=== PATIENT | male | born 1945 | race Caucasian/White ===

== ENCOUNTER → 2021-02-15 14:40 | Outpatient (CLI) | payer MEDICARE, SELFPAY ==
[2021-02-16 10:44] LABS: COVID19 -Nasal RAPID Negative (Negative)
== END ==
PROVIDERS: Family Provider Family Medicine; PCP Family Medicine; Visit Provider Physician Assistant
DX: Z20.822 Contact with and (suspected) exposure to COVID-19 (principal)
CPT/HCPCS: 87635; C9803

== ENCOUNTER → 2021-05-12 09:36 | Outpatient (CLI) | payer MEDICARE, OTHER, SELFPAY ==
[2021-05-12 20:44] LABS: Add Manual Diff / Slide Review NO; Basophils Absolute Auto 0 /uL (0-100); Basophils Percent Auto 0.5 % (0-2); Eosinophils Absolute Auto 200 /uL (0-450); Eosinophils Percent Auto 3.4 % (2-4); Hematocrit 42.5 % (41-53); Hemoglobin 13.9 g/dL (13.5-17.5); Lymphocytes Absolute Auto 1900 /uL (1100-4500); Lymphocytes Percent Auto 30.9 % (25-40); Mean Corpuscular HGB Conc 32.6 % (30-36); Mean Corpuscular Hemoglobin 32.1 PG (26-34); Mean Corpuscular Volume 98.4 fL (80-100); Monocytes Absolute Auto 600 /uL (0-900); Monocytes Percent Auto 9.8 % (3-14); Neutrophils Absolute Auto 3400 /uL (1500-7000); Neutrophils Percent Auto 55.4 % (50-75); Platelet Count 189 X10^3/uL (150-400); Red Blood Cell Count 4.33 X10^6/uL (4.5-5.9); Red Cell Distribution Width 14.2 % (11.6-14.8); White Blood Cell Count 6.1 X10^3/uL (4.5-11.0)
[2021-05-12 21:00] LABS: Hemoglobin A1C% w Est Avg Glu 5.3 % (4.0-6.0)
[2021-05-12 21:03] LABS: Alanine Aminotransferase 25 IU/L (<50); Albumin 4.4 g/dL (3.5-5.0); Albumin Globulin Ratio 1.5 (1.0-2.8); Alkaline Phosphatase 41 U/L (38-126); Aspartate Aminotransferase 35 IU/L (17-59); BUN Creatinine Ratio 18.3 (6-22); Bilirubin Total 0.7 mg/dL (0.2-1.3); Blood Urea Nitrogen 20 mg/dL (9-20); Calcium 10.5 mg/dL (8.4-10.2); Carbon Dioxide 26 mmol/L (22-32); Chloride 105 mmol/L (98-107); Cholesterol 221 mg/dL (140-199); Estimated Glomerular Filt Rate > 60.0 mL/min (>60); Globulin 2.9 g/dL (1.7-4.1); Glucose 101 mg/dL (80-110); HDL Cholesterol 75 mg/dL (40-60); HEMOLYSIS < 15 (0-50); LDL Cholesterol Calculated 125 mg/dL (<100); Sodium 138 mmol/L (137-145); Total Protein 7.3 g/dL (6.3-8.2); Triglycerides 106 mg/dL (35-150)
[2021-05-12 21:11] LABS: Potassium 5.5 mmol/L (3.4-5.1)
[2021-05-12 21:34] LABS: Prostate Specific Antigen < 0.064 ng/mL (0.10-4.00)
== END ==
PROVIDERS: Family Provider Family Medicine; PCP Family Medicine; Visit Provider Family Medicine
DX: E11.9 Type 2 diabetes mellitus without complications (principal); I10 Essential (primary) hypertension; Z85.46 Personal history of malignant neoplasm of prostate; Z90.5 Acquired absence of kidney
CPT/HCPCS: 80053; 80061; 83036; 84153; 84443; 85025

== ENCOUNTER → 2022-01-24 10:04 | Outpatient (CLI) | payer MEDICARE, OTHER, SELFPAY ==
[2022-01-24 19:39] LABS: Alanine Aminotransferase 29 IU/L (<50); Albumin 4.9 g/dL (3.5-5.0); Albumin Globulin Ratio 1.8 (1.0-2.8); Alkaline Phosphatase 47 U/L (38-126); Aspartate Aminotransferase 39 IU/L (17-59); BUN Creatinine Ratio 26.3 (6-22); Bilirubin Total 0.6 mg/dL (0.2-1.3); Blood Urea Nitrogen 35 mg/dL (9-20); Calcium 10.1 mg/dL (8.4-10.2); Carbon Dioxide 26 mmol/L (22-32); Chloride 102 mmol/L (98-107); Cholesterol 203 mg/dL (140-199); Estimated Glomerular Filt Rate 52.6 mL/min (>60); Globulin 2.8 g/dL (1.7-4.1); Glucose 114 mg/dL (80-110); HDL Cholesterol 62 mg/dL (40-60); HEMOLYSIS < 15 (0-50); Hemoglobin A1C% w Est Avg Glu 5.9 % (4.0-6.0); LDL Cholesterol Calculated 113 mg/dL (<100); Potassium 4.7 mmol/L (3.4-5.1); Sodium 138 mmol/L (137-145); Total Protein 7.7 g/dL (6.3-8.2); Triglycerides 138 mg/dL (35-150)
[2022-01-24 20:11] LABS: Prostate Specific Antigen < 0.064 ng/mL (0.10-4.00)
== END ==
PROVIDERS: Family Provider Family Medicine; PCP Family Medicine; Visit Provider Family Medicine
DX: Z85.46 Personal history of malignant neoplasm of prostate (principal); E78.00 Pure hypercholesterolemia, unspecified; E11.9 Type 2 diabetes mellitus without complications; C64.9 Malignant neoplasm of unspecified kidney, except renal pelvis
CPT/HCPCS: 80053; 80061; 83036; 84153

== ENCOUNTER → 2022-03-14 10:11 | Outpatient (CLI) | payer MEDICARE, OTHER, SELFPAY ==
[2022-03-14 19:18] LABS: BUN Creatinine Ratio 27.6 (6-22); Blood Urea Nitrogen 37 mg/dL (9-20); Carbon Dioxide 26 mmol/L (22-32); Chloride 99 mmol/L (98-107); Estimated Glomerular Filt Rate 56 mL/min (>60); Glucose 107 mg/dL (80-110); HEMOLYSIS < 15 (0-50); Potassium 4.2 mmol/L (3.4-5.1); Sodium 136 mmol/L (137-145)
== END ==
PROVIDERS: Family Provider Family Medicine; PCP Family Medicine; Visit Provider Family Medicine
DX: N18.9 Chronic kidney disease, unspecified (principal)
CPT/HCPCS: 80048

== ENCOUNTER → 2022-07-07 10:21 | Outpatient (CLI) | payer MEDICARE, OTHER, SELFPAY | PROVIDERS: Family Provider Family Medicine; PCP Family Medicine; Visit Provider Physician Assistant Medical | DX: L08.9 Local infection of the skin and subcutaneous tissue, unspecified (principal) | CPT/HCPCS: 87070; 87075; 87077; 87147; 87186; 87205 ==

== ENCOUNTER → 2022-10-11 11:03 | Outpatient (CLI) | payer MEDICARE, OTHER, SELFPAY ==
[2022-10-11 19:25] LABS: Hemoglobin 13.8 g/dL (13.5-17.5); Mean Corpuscular HGB Conc 33.8 % (30-36); Mean Corpuscular Volume 94.6 fL (80-100); Platelet Count 162 X10^3/uL (150-400); Red Blood Cell Count 4.33 X10^6/uL (4.5-5.9); Red Cell Distribution Width 13.6 % (11.6-14.8)
[2022-10-11 19:42] LABS: Cholesterol 198 mg/dL (140-199); HDL Cholesterol 60 mg/dL (40-60); LDL Cholesterol Calculated 95 mg/dL (<100); Triglycerides 213 mg/dL (35-150)
[2022-10-11 20:13] LABS: TSH w/ Reflex to FT4 2.41 uIU/mL (0.47-4.68)
[2022-10-11 20:14] LABS: Testosterone 197 ng/dL (71.8-623)
[2022-10-11 20:18] LABS: Neutrophils Absolute Manual 2400 /uL (3000-5900); RBC Morphology Normal Morphology; Total Cells Counted 100
== END ==
PROVIDERS: Family Provider Family Medicine; PCP Family Medicine; Visit Provider Family Medicine
DX: E78.00 Pure hypercholesterolemia, unspecified (principal); R53.83 Other fatigue
CPT/HCPCS: 80061; 84403; 84443; 85025

== ENCOUNTER → 2022-10-13 10:23 | Outpatient (CLI) | payer MEDICARE, OTHER, SELFPAY ==
[2022-10-13 19:01] LABS: Blood Urea Nitrogen 39 mg/dL (9-20); Calcium 10.5 mg/dL (8.4-10.2); Carbon Dioxide 27 mmol/L (22-32); Chloride 102 mmol/L (98-107); Estimated Glomerular Filt Rate 57 mL/min (>60); Glucose 107 mg/dL (80-110); HEMOLYSIS < 15 (0-50); Potassium 4.4 mmol/L (3.4-5.1); Sodium 141 mmol/L (137-145)
[2022-10-13 19:31] LABS: Prostate Specific Antigen < 0.064 ng/mL (0.10-4.00)
[2022-10-13 19:37] LABS: Hemoglobin A1C% w Est Avg Glu 5.9 % (4.0-6.0)
== END ==
PROVIDERS: Family Provider Family Medicine; PCP Family Medicine; Visit Provider Family Medicine
DX: E11.9 Type 2 diabetes mellitus without complications (principal); Z85.46 Personal history of malignant neoplasm of prostate; N18.31 Chronic kidney disease, stage 3a
CPT/HCPCS: 80048; 83036; 84153

== ENCOUNTER 2022-12-05 18:10 | Emergency (ER) | payer MEDICARE, OTHER, SELFPAY ==
--- NOTE | 2022-12-05 18:25 | DI.CT.S_ITS ---
PROCEDURE: CT HEAD/BRAIN WO CON INDICATIONS: eyesight and hearing impairment TECHNIQUE: Noncontrast 4.5 mm thick angled axial sections acquired from the foramen magnum to the vertex, with coronal and sagittal reformats. For radiation dose reduction, the following was used: automated exposure control, adjustment of mA and/or kV according to patient size. COMPARISON: None. FINDINGS: Image quality: Excellent. CSF spaces: Basal cisterns are patent. No extra-axial fluid collections. The ventricles are symmetric in size and shape. Brain: No intracranial bleeds or masses. There is cerebral volume loss for age, with resultant ventricular and sulcal prominence. There are periventricular and deep white matter chronic small vessel ischemic changes. There is intracranial internal carotid artery atherosclerosis. Skull and face: Calvarium and visualized facial bones appear intact, without suspicious lesions. Sinuses: Visualized sinuses and mastoids are clear. IMPRESSION: No acute intracranial abnormality. Dictated by: Terri Broussard M.D. on 12/05/2022 at 18:52 Approved by: Terri Broussard M.D. on 12/05/2022 at 18:53
[2022-12-05 18:26] VITALS: BP 200/90; PULSE 68; RESP 18; TEMP 36.9; O2SAT 98
--- NOTE | 2022-12-05 20:23 | PC.NURSE ---
Pt reports going to bed Monday night able to hear out of both ears, then waking up Monday morning with no hearing in his left ear. Pt reports some at [facility] he was told his vision according to the eye test was blurry. Pt denies blurred vision with this nurse.
[2022-12-05 20:27] VITALS: BP 172/76; PULSE 65; O2SAT 97
[2022-12-05 20:30] VITALS: BP 169/81; PULSE 66; O2SAT 97
--- NOTE | 2022-12-05 22:28 | ED_ITS ---
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 Was seen at his primary care clinic and told he had no ear wax occluding the ear and eye exam does confirm significantly blurry vision not even able to read the top letters on the eye chart. Comes to the emergency room for further evaluation. On Anticoagulants: No Related Data Home Medications Medication Instructions Recorded Confirmed atenolol 100 mg tablet 100 mg PO DAILY 02/25/21 12/05/22 cholecalciferol (vitamin D3) 50 50 mcg PO DAILY 03/04/21 12/05/22 mcg (2,000 unit) capsule (Vitamin D3) multivitamin (Daily Multi-Vitamin 1 tab PO DAILY 03/04/21 12/05/22 tablet) omega-3 fatty acids 1,000 mg 1,000 mg PO DAILY 03/04/21 12/05/22 capsule (Fish Oil Concentrate) vitamin B complex [B PO 05/14/21 12/05/22 Complex-Vitamin B12] flaxseed oil 1,000 mg capsule 1,400 mg PO DAILY 10/13/22 12/05/22 ([place]-3 Flaxseed Oil) Previous Rx's Medication Instructions Recorded blood sugar diagnostic (Blood #100 ea 01/25/22 Glucose Test strips) blood-glucose meter (Accu-Chek #1 ea 01/31/22 Sherrie Plus Meter) lancets 33 gauge #100 ea 01/31/22 amlodipine 2.5 mg tablet 2.5 mg PO DAILY #90 tabs 05/18/22 pravastatin 10 mg tablet 10 mg PO DAILY #90 tabs 08/30/22 losartan 100 See Rx Instructions .Route 09/12/22 mg-hydrochlorothiazide 12.5 mg .COMPLEX #90 tabs tablet metformin 500 mg tablet 500 mg PO DAILY #90 tabs 11/01/22 Allergies Allergy/AdvReac Type Severity Reaction Status Date / Time doxycycline AdvReac Intermediate Diarrhea, Verified 12/05/22 18:30 nausea terbinafine AdvReac Intermediate Verified 12/05/22 18:30 Review of Systems Hematologic/Lymphatic On Anticoagulants: No Patient History Medical History (Updated 12/05/22 @ 17:51 by Mikayla Guevara PA-C) Chicken pox History of prostate cancer Hyperlipidemia Kidney stones Measles Renal cell carcinoma Surgical History (Updated 04/10/21 @ 20:07 by Rocío Kaminski) Status post nephrectomy Family History (Updated 04/10/21 @ 20:08 by Rocío Kaminski) Father Diabetes mellitus Mother History of heart disease Social History Smoking Status: Former smoker Smoking Status: Former smoker alcohol intake frequency: 0-2 drinks per day Alcohol type: wine and hard liquor Substance Use Type: does not use Exam Initial Vital Signs Initial Vital Signs: Vital Signs Temperature 98.4 F 12/05/22 18:26 Pulse Rate 68 12/05/22 18:26 Respiratory Rate 18 12/05/22 18:26 Blood Pressure 200/90 H 12/05/22 18:26 Pulse Oximetry 98 12/05/22 18:26 Oxygen Delivery Method 12/05/22 18:26 Course Orders Ordered: ED Orders 12/05/22 18:25 CT head/brain wo con Stat Vital Signs Vital signs: Vital Signs - 8 hr 12/05/22 18:26 12/05/22 20:27 12/05/22 20:27 Temperature 98.4 F Pulse Rate 68 65 Respiratory Rate 18 Blood Pressure 200/90 H 172/76 H Pulse Oximetry 98 97 Oxygen Delivery Method Room Air 12/05/22 20:30 12/05/22 20:30 Temperature Pulse Rate 66 Respiratory Rate Blood Pressure 169/81 H Pulse Oximetry 97 Oxygen Delivery Method Discharge Plan Departure Prescriptions: No Action (DME) blood-glucose meter [Accu-Chek Sherrie Plus Meter] Misc See Rx Instructions .ROUTE .COMPLEX Qty: 1 0RF Dose Instruction: USE TO CHECK GLUCOSE ONCE DAILY Rx Instructions: USE TO CHECK GLUCOSE ONCE DAILY (DME) lancets 33 gauge misc See Rx Instructions .Route Qty: 100 4RF Rx Instructions: Test blood sugar once daily amlodipine 2.5 mg tablet 2.5 mg PO DAILY Qty: 90 4RF pravastatin 10 mg tablet 10 mg PO DAILY Qty: 90 1RF losartan-hydrochlorothiazide 100-12.5 mg tablet See Rx Instructions .ROUTE .COMPLEX Qty: 90 0RF Dose Instruction: TAKE 1 TABLET EVERY DAY Rx Instructions: TAKE 1 TABLET EVERY DAY metformin 500 mg tablet 500 mg PO DAILY Qty: 90 1RF vitamin B complex [B Complex-Vitamin B12] PO omega-3 fatty acids [Fish Oil Concentrate] 1,000 mg capsule 1,000 mg PO DAILY cholecalciferol (vitamin D3) [Vitamin D3] 50 mcg (2,000 unit) capsule 50 mcg PO DAILY multivitamin [Daily Multi-Vitamin] Tablet 1 tab PO DAILY flaxseed oil [[place]-3 Flaxseed Oil] 1,000 mg capsule 1,400 mg PO DAILY Rx Instructions: administer with a meal atenolol 100 mg tablet 100 mg PO DAILY (DME) Blood Glucose Test Strip See Rx Instructions .Route Qty: 100 4RF Rx Instructions: Test blood sugar once daily triamcinolone acetonide [Kenalog] 40 mg/mL suspension 80 mg intra-articular ONCE Qty: 2 0RF Referrals: Garrett Morales MD [Primary Care Provider] -
--- NOTE | 2022-12-05 22:56 | PC.NURSE ---
Pt reports he does not wear corrective lenses.
--- NOTE | 2022-12-05 23:04 | ED.GENADULT ---
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 Try to Q-tip notice that the was slight decreased sensation in the ear canal. He was seen by On [facility] today and no wax occlusion was noted. He did a visual screening test there and could not see the big E on signs but does significantly better on are visual acuity testing today. Reports no other findings specifically no fevers, cough, chills, vomiting, diarrhea, headache, confusion, word-finding difficulties, ataxia, peripheral weakness or numbness. Related Data Home Medications Medication Instructions Recorded Confirmed atenolol 100 mg tablet 100 mg PO DAILY 02/25/21 12/05/22 cholecalciferol (vitamin D3) 50 50 mcg PO DAILY 03/04/21 12/05/22 mcg (2,000 unit) capsule (Vitamin D3) multivitamin (Daily Multi-Vitamin 1 tab PO DAILY 03/04/21 12/05/22 tablet) omega-3 fatty acids 1,000 mg 1,000 mg PO DAILY 03/04/21 12/05/22 capsule (Fish Oil Concentrate) vitamin B complex [B PO 05/14/21 12/05/22 Complex-Vitamin B12] flaxseed oil 1,000 mg capsule 1,400 mg PO DAILY 10/13/22 12/05/22 (Dougherty-3 Flaxseed Oil) Previous Rx's Medication Instructions Recorded blood sugar diagnostic (Blood #100 ea 01/25/22 Glucose Test strips) blood-glucose meter (Accu-Chek #1 ea 01/31/22 Sherrie Plus Meter) lancets 33 gauge #100 ea 01/31/22 amlodipine 2.5 mg tablet 2.5 mg PO DAILY #90 tabs 05/18/22 pravastatin 10 mg tablet 10 mg PO DAILY #90 tabs 10/18/22 losartan 100 See Rx Instructions .Route 09/12/22 mg-hydrochlorothiazide 12.5 mg .COMPLEX #90 tabs tablet metformin 500 mg tablet 500 mg PO DAILY #90 tabs 11/01/22 Allergies Allergy/AdvReac Type Severity Reaction Status Date / Time doxycycline AdvReac Intermediate Diarrhea, Verified 12/05/22 18:30 nausea terbinafine AdvReac Intermediate Verified 12/05/22 18:30 Review of Systems <Kiarra Parker MD - Last Filed: 12/06/22 18:07> Review of Systems Narrative: Remainder of complete review of systems is otherwise unremarkable except for that included in the HPI. Patient History <Kiarra Parker MD - Last Filed: 12/06/22 18:07> Medical History Chicken pox History of prostate cancer Hyperlipidemia Kidney stones Measles Renal cell carcinoma Surgical History Status post nephrectomy Family History Father Diabetes mellitus Mother History of heart disease Social History Smoking Status: Former smoker Smoking Status: Former smoker alcohol intake frequency: 0-2 drinks per day Alcohol type: wine and hard liquor Substance Use Type: does not use Exam <Kiarra Parker MD - Last Filed: 12/06/22 18:07> Initial Vital Signs Initial Vital Signs: Vital Signs Temperature 98.4 F 12/05/22 18:26 Pulse Rate 68 12/05/22 18:26 Respiratory Rate 18 12/05/22 18:26 Blood Pressure 200/90 H 12/05/22 18:26 Pulse Oximetry 98 12/05/22 18:26 Oxygen Delivery Method 12/05/22 18:26 General: Healthy appearing, in no acute distress. Able to give a complete and coherent history. Well-nourished well-developed HEENT: Moist mucous membranes, normal sclera with reactive pupils, ear canals are somewhat small, dry skin but clear tympanic membranes Visual acuity: 20/70 right side, 20/70 left side, 20/50 bilaterally Neck: No JVD, supple Respiratory: Lungs are clear to auscultation, no wheezing no rales no rhonchi. Full and symmetrical air movement Cardiac: Regular rate and rhythm no murmurs no bruits Abdomen: Soft, nontender, good bowel tones, no flank pain Skin: Warm and dry, no rashes Neurologic: Grossly neurologically intact with no obvious asymmetries or abnormalities Extremities: No trauma, well perfused Psych: Cooperative, appropriate insight and affect <Fabian Simms MD - Last Filed: 12/06/22 18:58> Initial Vital Signs Initial Vital Signs: Vital Signs Temperature 98.4 F 12/05/22 18:26 Pulse Rate 68 12/05/22 18:26 Respiratory Rate 18 12/05/22 18:26 Blood Pressure 200/90 H 12/05/22 18:26 Pulse Oximetry 98 12/05/22 18:26 Oxygen Delivery Method 12/05/22 18:26 Course <Kiarra Parker MD - Last Filed: 12/06/22 18:07> Orders Ordered: Discontinued Medications Amlodipine Besylate (Amlodipine 5 Mg Tablet) 2.5 mg PO NOW ONE Stop: 12/05/22 23:21 Last Admin: 12/05/22 23:42 Dose: 2.5 mg Documented By: SB Atenolol (Atenolol 50 Mg Tablet) 50 mg PO NOW ONE Stop: 12/05/22 23:21 Last Admin: 12/05/22 23:42 Dose: 50 mg Documented By: SB Lorazepam (Lorazepam 0.5 Mg Tablet) 1 mg PO 0600 BORA Last Admin: 12/06/22 09:47 Dose: 1 mg Documented By: RB Metformin HCl (Metformin Hcl 500 Mg Tablet) 500 mg PO NOW ONE Stop: 12/05/22 23:22 Last Admin: 12/05/22 23:42 Dose: 500 mg Documented By: SB Vital Signs Vital signs: Vital Signs - 8 hr 12/06/22 11:08 12/06/22 13:15 Pulse Rate 54 L 59 L Blood Pressure 136/63 147/70 H Pulse Oximetry 99 100 Oxygen Delivery Method Room Air Room Air <Fabian Simms MD - Last Filed: 12/06/22 18:58> Course Course Narrative: December 06, 2022 at 7:00 a.m.. Sign out from Dr. Sapp, at this time patient awaiting for MRI of the brain this morning. Patient will like the have disposition for home. Will need to follow up with sales account associate or mill crane operator for his vision changes. And also may follow up for ENT for hearing loss. Orders Ordered: Discontinued Medications Amlodipine Besylate (Amlodipine 5 Mg Tablet) 2.5 mg PO NOW ONE Stop: 12/05/22 23:21 Last Admin: 12/05/22 23:42 Dose: 2.5 mg Documented By: SB Atenolol (Atenolol 50 Mg Tablet) 50 mg PO NOW ONE Stop: 12/05/22 23:21 Last Admin: 12/05/22 23:42 Dose: 50 mg Documented By: SB Lorazepam (Lorazepam 0.5 Mg Tablet) 1 mg PO 0600 BORA Last Admin: 12/06/22 09:47 Dose: 1 mg Documented By: RB Metformin HCl (Metformin Hcl 500 Mg Tablet) 500 mg PO NOW ONE Stop: 12/05/22 23:22 Last Admin: 12/05/22 23:42 Dose: 500 mg Documented By: SB Vital Signs Vital signs: Vital Signs - 8 hr 12/06/22 11:08 12/06/22 13:15 Pulse Rate 54 L 59 L Blood Pressure 136/63 147/70 H Pulse Oximetry 99 100 Oxygen Delivery Method Room Air Room Air Medical Decision Making <Kiarra Parker MD - Last Filed: 12/06/22 18:07> Lab Data 12/05/22 23:57 12/05/22 23:57 Labs: Lab Results 12/05/22 12/05/22 Range/Units 23:57 23:57 WBC 5.8 (4.5-11.0) X10^3/uL RBC 4.27 L (4.5-5.9) X10^6/uL Hgb 13.6 (13.5-17.5) g/dL Hct 40.8 L (41-53) % MCV 95.4 (80-100) fL MCH 31.8 (26-34) PG MCHC 33.4 (30-36) % RDW 14.0 (11.6-14.8) % Plt Count 164 (150-400) X10^3/uL Neut % (Auto) 53.7 (50-75) % Lymph % (Auto) 34.3 (25-40) % Vermilion % (Auto) 9.2 (3-14) % Eos % (Auto) 2.2 (2-4) % Baso % (Auto) 0.6 (0-2) % Neut # (Auto) 3100 (6116-0546) /uL Lymph # (Auto) 2000 (8865-4427) /uL Vermilion # (Auto) 500 (0-900) /uL Eos # (Auto) 100 (0-450) /uL Baso # (Auto) 0 (0-100) /uL Sodium 139 (137-145) mmol/L Potassium 4.2 (3.4-5.1) mmol/L Chloride 106 (98-107) mmol/L Carbon Dioxide 22 (22-32) mmol/L BUN 36 H (9-20) mg/dL Creatinine 1.40 H (0.66-1.25) mg/dL Estimated GFR 52 L (>60) mL/min BUN/Creatinine Ratio 25.7 H (6-22) Glucose 101 (80-110) mg/dL Calcium 10.1 (8.4-10.2) mg/dL Total Bilirubin 0.7 (0.2-1.3) mg/dL AST 36 (17-59) IU/L ALT 33 (<50) IU/L Alkaline Phosphatase 43 (38-126) U/L Troponin I 0.027 (0.01-0.034) ng/mL Total Protein 8.0 (6.3-8.2) g/dL Albumin 4.7 (3.5-5.0) g/dL Globulin 3.3 (1.7-4.1) g/dL Albumin/Globulin Ratio 1.4 (1.0-2.8) ECG Data Interpretation: Sinus rhythm at a rate of 58 Normal intervals, left axis deviation No acute ischemic changes MDM Narrative Medical decision making narrative: CC: Acute hearing loss left side decreased visual acuity bilaterally acute onset upon awakening on December 03. New diagnosis, uncertain etiology and prognosis Complicating co-morbidities: Prior small brain tumor with gamma knife radiation, hypertension hyperlipidemia Corroborating data: Data collected from: patient, Social determinants of health that may influence the patients condition: Living on [facility] with isolation from medical facilities Medical records reviewed: Primary care notes Differential considered: Acoustic neuroma, occlusion of the tympanic membrane, otitis media, otitis externa, stroke, intracranial hemorrhage, other brain tumor Exam documented above, pertinent findings include: Completely normal exam Lab Test results independently reviewed as above. Pertinent findings: CBC is unremarkable Chemistries show slightly elevated creatinine at 1.4 which is close to his baseline with a GFR at 52 and BUN 36 again close to baseline for both. (history of nephrectomy) No other abnormalities are appreciated Imaging studies independently reviewed: Brain CT is unremarkable. MR is ordered Consultations: Treatments: Re-evaluations: Discussion: Disposition: see below, along with detailed discharge instructions that have been reviewed with patient as well as indications for ED re-evaluation and additional outpatient follow up <Fabian Simms MD - Last Filed: 12/06/22 18:58> Lab Data Labs: Lab Results 12/05/22 12/05/22 Range/Units 23:57 23:57 WBC 5.8 (4.5-11.0) X10^3/uL RBC 4.27 L (4.5-5.9) X10^6/uL Hgb 13.6 (13.5-17.5) g/dL Hct 40.8 L (41-53) % MCV 95.4 (80-100) fL MCH 31.8 (26-34) PG MCHC 33.4 (30-36) % RDW 14.0 (11.6-14.8) % Plt Count 164 (150-400) X10^3/uL Neut % (Auto) 53.7 (50-75) % Lymph % (Auto) 34.3 (25-40) % Vermilion % (Auto) 9.2 (3-14) % Eos % (Auto) 2.2 (2-4) % Baso % (Auto) 0.6 (0-2) % Neut # (Auto) 3100 (2687-3419) /uL Lymph # (Auto) 2000 (7093-6197) /uL Vermilion # (Auto) 500 (0-900) /uL Eos # (Auto) 100 (0-450) /uL Baso # (Auto) 0 (0-100) /uL Sodium 139 (137-145) mmol/L Potassium 4.2 (3.4-5.1) mmol/L Chloride 106 (98-107) mmol/L Carbon Dioxide 22 (22-32) mmol/L BUN 36 H (9-20) mg/dL Creatinine 1.40 H (0.66-1.25) mg/dL Estimated GFR 52 L (>60) mL/min BUN/Creatinine Ratio 25.7 H (6-22) Glucose 101 (80-110) mg/dL Calcium 10.1 (8.4-10.2) mg/dL Total Bilirubin 0.7 (0.2-1.3) mg/dL AST 36 (17-59) IU/L ALT 33 (<50) IU/L Alkaline Phosphatase 43 (38-126) U/L Troponin I 0.027 (0.01-0.034) ng/mL Total Protein 8.0 (6.3-8.2) g/dL Albumin 4.7 (3.5-5.0) g/dL Globulin 3.3 (1.7-4.1) g/dL Albumin/Globulin Ratio 1.4 (1.0-2.8) Imaging Data MRI brain: Radiologist's Impression: [address] [address] Magnetic Resonance Report Signed Patient: Wayne Braswell MR#: [id number] : 1945 Acct:[id number] Age/Sex: 77 / M Date of Service: 12/05/22 Loc: ED Accession Number: [id number] ?? Procedure: MR head/brain wo/w con Ordering Provider: Kiarra Parker MD PROCEDURE:? MR HEAD/BRAIN WO/W CON ? INDICATIONS:? acute left hearing loss, acute decreased visual accuity ? TECHNIQUE:? Noncontrast axial T1 spin echo, axial T2 fast spin echo, sagittal and axial FLAIR, coronal T2 fast spin echo, axial gradient echo, axial diffusion and ADC through the brain.? After the administration of contrast, axial and coronal and sagittal T1 spin echo with fat saturation through the brain.? ? COMPARISON:? [facility], CT, CT HEAD/BRAIN WO CON, 12/05/2022, 18:33. ? FINDINGS:? Image quality:? Decreased due to suboptimal patient positioning, patient motion, technical difficulties limiting image quality. ? CSF spaces:? Basal cisterns are patent.? No extra-axial fluid collections.? Ventricles are normal in size and shape.? ? Brain:? There is a small focus of abnormal FLAIR signal in the right lateral frontal lobe near the vertex measuring about 9 mm.? There is corresponding cortical enhancement measuring about 1.2 cm.? There is no definite restricted diffusion in this region. ? There are no other areas of abnormal enhancement in the brain.? No midline shift.? No intracranial bleeds or masses. There is cerebral volume loss for age.? There is periventricular white matter chronic small vessel ischemic change.? The brainstem appears normal.? Diffusion-weighted images demonstrate no acute ischemic insults.? No chronic ischemic insults.? Normal intravascular flow voids are present.? ? Skull and face:? Calvarial marrow is normal in signal.? Orbits appear normal.? ? Sinuses:? Sinuses and mastoids appear clear.? ? ? IMPRESSION:? ? 1. Decreased study quality secondary to several limitations. ? 2. There is a single focus of abnormal enhancement and FLAIR signal in the right frontal cortex near the vertex.? This is nonspecific and differential diagnosis includes prior infarct with luxury perfusion, metastasis, infection or inflammation. Short-term follow-up for further/repeat evaluation when the patient can better cooperate with imaging is recommended.? ? Dictated by: Tash Palumbo M.D. on 12/06/2022 at 10:06 ? ? Approved by: Tash Palumbo M.D. on 12/06/2022 at 10:47 ? [facility] Narrative Medical decision making narrative: CC: Acute hearing loss left side decreased visual acuity bilaterally acute onset upon awakening on December 03. New diagnosis, uncertain etiology and prognosis Complicating co-morbidities: Prior small brain tumor with gamma knife radiation, hypertension hyperlipidemia Corroborating data: Data collected from: patient, Social determinants of health that may influence the patients condition: Living on [facility] with isolation from medical facilities Medical records reviewed: Primary care notes Differential considered: Acoustic neuroma, occlusion of the tympanic membrane, otitis media, otitis externa, stroke, intracranial hemorrhage, other brain tumor Exam documented above, pertinent findings include: Completely normal exam Lab Test results independently reviewed as above. Pertinent findings: CBC is unremarkable Chemistries show slightly elevated creatinine at 1.4 which is close to his baseline with a GFR at 52 and BUN 36 again close to baseline for both. (history of nephrectomy) No other abnormalities are appreciated Imaging studies independently reviewed: Brain CT is unremarkable. MR brain single focus of abnormal enhancement and FLAIR signal in the right frontal cortex near the vertex. This is nonspecific and differential diagnosis includes prior infarct, med stasis, infection or inflammation. Short-term follow-up recommended Consultations: 2:42 p.m.. Spoke with [facility] neurosurgeon, Dr. Rivera, patient has already left, he agrees based on findings MRI they do not correlate with patient's complaints today. Patient can follow up with primary care for repeat MRI in 2 weeks. Treatments: Amlodipine, atenolol, metformin Re-evaluations: 12:06 p.m.. Reviewed MRI results with patient and . We are waiting to hear back from [facility] neurosurgical services. Images have been pushed. I will give referral to Dr. Lozada with otolaryngology locally here for hearing loss. Patient has seen ophthalmology with [facility] in [place] last year. He will follow up for visual changes complaint. 1:08 p.m.. [facility] transfer [place] has called back and neurosurgical services is in the operating room and will not be out available for consult until another hour. I spoke with patient and . They do not want await and had been here all night. They desire discharge home. However they are spending the night here in town and not taking the [place] back home. They have appointment scheduled tomorrow already with otolaryngology in [place]. Return precautions reviewed with them. They desire discharge home 6:57 p.m.. I left voicemail for cell phone regarding discussion with Neurosurgery to follow up in 2 weeks for outpatient MRI for repeat imaging. Discussion: Appropriate for discharge home. Return precautions reviewed with patient and . Patient will need otolaryngology and Ophthalmology follow-up which is appropriate. Otherwise no other neuro deficits. Otherwise laboratory studies imaging are otherwise reassuring. Discharge Plan Departure Patient Disposition: Home Clinical Impression: Acute hearing loss of left ear, Decreased visual acuity Instructions: DI for Hearing Loss, DI for Visual Field Disturbances Activity Restrictions/Additional Instructions: Please call your ophthalmology provider today to make appointment regarding your visual changes. Please see otolaryngology services tomorrow as scheduled.. You may continue your home medications. Return if worse if any questions or concerns. At time of discharge we have not heard back from neurosurgical services. Please do call back regarding information they will provide for follow-up. Prescriptions: No Action (DME) blood-glucose meter [Accu-Chek Sherrie Plus Meter] Misc See Rx Instructions .ROUTE .COMPLEX Qty: 1 0RF Dose Instruction: USE TO CHECK GLUCOSE ONCE DAILY Rx Instructions: USE TO CHECK GLUCOSE ONCE DAILY (DME) lancets 33 gauge misc See Rx Instructions .Route Qty: 100 4RF Rx Instructions: Test blood sugar once daily amlodipine 2.5 mg tablet 2.5 mg PO DAILY Qty: 90 4RF pravastatin 10 mg tablet 10 mg PO DAILY Qty: 90 1RF losartan-hydrochlorothiazide 100-12.5 mg tablet See Rx Instructions .ROUTE .COMPLEX Qty: 90 0RF Dose Instruction: TAKE 1 TABLET EVERY DAY Rx Instructions: TAKE 1 TABLET EVERY DAY metformin 500 mg tablet 500 mg PO DAILY Qty: 90 1RF vitamin B complex [B Complex-Vitamin B12] PO omega-3 fatty acids [Fish Oil Concentrate] 1,000 mg capsule 1,000 mg PO DAILY cholecalciferol (vitamin D3) [Vitamin D3] 50 mcg (2,000 unit) capsule 50 mcg PO DAILY multivitamin [Daily Multi-Vitamin] Tablet 1 tab PO DAILY flaxseed oil [Dougherty-3 Flaxseed Oil] 1,000 mg capsule 1,400 mg PO DAILY Rx Instructions: administer with a meal atenolol 100 mg tablet 100 mg PO DAILY (DME) Blood Glucose Test Strip See Rx Instructions .Route Qty: 100 4RF Rx Instructions: Test blood sugar once daily triamcinolone acetonide [Kenalog] 40 mg/mL suspension 80 mg intra-articular ONCE Qty: 2 0RF Referrals: Lauro Lozada MD [Physician] - Garrett Morales MD [Primary Care Provider] - Stand Alone Forms: Patient Portal/API
--- NOTE | 2022-12-05 23:21 | DI.MRI.S_ITS ---
PROCEDURE: MR HEAD/BRAIN WO/W CON INDICATIONS: acute left hearing loss, acute decreased visual accuity TECHNIQUE: Noncontrast axial T1 spin echo, axial T2 fast spin echo, sagittal and axial FLAIR, coronal T2 fast spin echo, axial gradient echo, axial diffusion and ADC through the brain. After the administration of contrast, axial and coronal and sagittal T1 spin echo with fat saturation through the brain. COMPARISON: [facility], CT, CT HEAD/BRAIN WO CON, 12/05/2022, 18:33. FINDINGS: Image quality: Decreased due to suboptimal patient positioning, patient motion, technical difficulties limiting image quality. CSF spaces: Basal cisterns are patent. No extra-axial fluid collections. Ventricles are normal in size and shape. Brain: There is a small focus of abnormal FLAIR signal in the right lateral frontal lobe near the vertex measuring about 9 mm. There is corresponding cortical enhancement measuring about 1.2 cm. There is no definite restricted diffusion in this region. There are no other areas of abnormal enhancement in the brain. No midline shift. No intracranial bleeds or masses. There is cerebral volume loss for age. There is periventricular white matter chronic small vessel ischemic change. The brainstem appears normal. Diffusion-weighted images demonstrate no acute ischemic insults. No chronic ischemic insults. Normal intravascular flow voids are present. Skull and face: Calvarial marrow is normal in signal. Orbits appear normal. Sinuses: Sinuses and mastoids appear clear. IMPRESSION: 1. Decreased study quality secondary to several limitations. 2. There is a single focus of abnormal enhancement and FLAIR signal in the right frontal cortex near the vertex. This is nonspecific and differential diagnosis includes prior infarct with luxury perfusion, metastasis, infection or inflammation. Short-term follow-up for further/repeat evaluation when the patient can better cooperate with imaging is recommended. Dictated by: Tash Palumbo M.D. on 12/06/2022 at 10:06 Approved by: Tash Palumbo M.D. on 12/06/2022 at 10:47
[2022-12-05] MEDS: AMLODIPINE 5 MG TABLET 2.5 MG PO (23:42)
[2022-12-05] MEDS: atenoloL 50 MG TABLET PO (23:42)
[2022-12-05] MEDS: METFORMIN HCL 500 MG TABLET PO (23:42)
[2022-12-05 23:46] VITALS: BP 170/79; PULSE 59; RESP 18; O2SAT 100
[2022-12-06 00:06] LABS: Add Manual Diff / Slide Review NO; Basophils Absolute Auto 0 /uL (0-100); Basophils Percent Auto 0.6 % (0-2); Eosinophils Absolute Auto 100 /uL (0-450); Eosinophils Percent Auto 2.2 % (2-4); Hematocrit 40.8 % (41-53); Hemoglobin 13.6 g/dL (13.5-17.5); Lymphocytes Absolute Auto 2000 /uL (1100-4500); Lymphocytes Percent Auto 34.3 % (25-40); Mean Corpuscular HGB Conc 33.4 % (30-36); Mean Corpuscular Hemoglobin 31.8 PG (26-34); Mean Corpuscular Volume 95.4 fL (80-100); Monocytes Absolute Auto 500 /uL (0-900); Monocytes Percent Auto 9.2 % (3-14); Neutrophils Absolute Auto 3100 /uL (1500-7000); Neutrophils Percent Auto 53.7 % (50-75); Platelet Count 164 X10^3/uL (150-400); Red Blood Cell Count 4.27 X10^6/uL (4.5-5.9); White Blood Cell Count 5.8 X10^3/uL (4.5-11.0)
[2022-12-06 00:29] LABS: Alanine Aminotransferase 33 IU/L (<50); Albumin 4.7 g/dL (3.5-5.0); Albumin Globulin Ratio 1.4 (1.0-2.8); Alkaline Phosphatase 43 U/L (38-126); Aspartate Aminotransferase 36 IU/L (17-59); BUN Creatinine Ratio 25.7 (6-22); Bilirubin Total 0.7 mg/dL (0.2-1.3); Blood Urea Nitrogen 36 mg/dL (9-20); Calcium 10.1 mg/dL (8.4-10.2); Carbon Dioxide 22 mmol/L (22-32); Chloride 106 mmol/L (98-107); Estimated Glomerular Filt Rate 52 mL/min (>60); Globulin 3.3 g/dL (1.7-4.1); Glucose 101 mg/dL (80-110); HEMOLYSIS < 15 (0-50); Potassium 4.2 mmol/L (3.4-5.1); Sodium 139 mmol/L (137-145)
[2022-12-06 00:41] LABS: Troponin I 0.027 ng/mL (0.01-0.034)
[2022-12-06 04:12] VITALS: BP 169/71; PULSE 60; RESP 18; O2SAT 98
[2022-12-06 06:31] VITALS: BP 160/69; PULSE 68; RESP 18; O2SAT 97
--- NOTE | 2022-12-06 06:32 | PC.NURSE ---
He ambulated from room and asked me about when his MRI would be done.I answered his question.His neuro status was unchanged he said,no new vision or hearing changes.
[2022-12-06] MEDS: LORazepam 0.5 MG TABLET 1 MG PO (09:47)
[2022-12-06 11:08] VITALS: BP 136/63; PULSE 54; O2SAT 99
[2022-12-06 13:15] VITALS: BP 147/70; PULSE 59; O2SAT 100
== END 2022-12-06 13:25 | disposition home or self-care (01) ==
PROVIDERS: Emergency Medicine; Emergency Provider Emergency Medicine; Family Provider Family Medicine; PCP Family Medicine
DX: H91.92 Unspecified hearing loss, left ear (principal); H53.9 Unspecified visual disturbance; R07.9 Chest pain, unspecified
CPT/HCPCS: 36415; 70450; 70553; 80053; 84484; 85025; 93005; 99283; 99284

== ENCOUNTER → 2022-12-13 08:58 | Outpatient (CLI) | payer MEDICARE, OTHER, SELFPAY ==
--- NOTE | 2022-12-13 08:59 | DI.MRI.S_ITS ---
PROCEDURE: MR HEAD/BRAIN WO/W CON INDICATIONS: Abnormal FLAIR previous image and motion artifact. TECHNIQUE: Noncontrast axial T1 spin echo, axial T2 fast spin echo, sagittal and axial FLAIR, coronal T2 fast spin echo, axial gradient echo, axial diffusion and ADC through the brain. After the administration of contrast, axial and coronal and sagittal T1 spin echo with fat saturation through the brain. COMPARISON: [facility], CT, CT HEAD/BRAIN WO CON, 12/05/2022, 18:33. [facility], MR, MR HEAD/BRAIN WO/W CON, 12/06/2022, 10:26. FINDINGS: Image quality: This examination is limited by involuntary motion artifact. Secondary to positioning difficulty, the standard head coil could not be used. CSF spaces: Basal cisterns are patent. No extra-axial fluid collections. Ventricles are normal in size and shape. Brain: There is again seen a focus of abnormal FLAIR signal seen within the superolateral right frontal lobe, as on series 12, image 19 and on series 9, image 6. At this site, there is a mild amount of enhancement seen, as on series 20, image 82. No midline shift. No intracranial bleeds or masses. No abnormal intracranial enhancement. There is cerebral volume loss for age. There is periventricular white matter chronic small vessel ischemic change. The brainstem appears normal. Diffusion-weighted images demonstrate no acute ischemic insults. Normal intravascular flow voids are present. Skull and face: Calvarial marrow is normal in signal. Orbits appear normal. Sinuses: Sinuses and mastoids appear clear. IMPRESSION: Highly limited study demonstrating a stable focus of abnormal FLAIR signal involving the superolateral right frontal lobe. A small amount of enhancement can be seen at this site. This is nonspecific, although differential diagnosis includes prior infarction and metastasis. Infectious and inflammatory change are also possible, yet considered to be less likely. If clinically appropriate, please consider short-term follow-up in 2-6 weeks. Dictated by: Mark Anthony Fenton M.D. on 12/13/2022 at 11:20 Approved by: Mark Anthony Fenton M.D. on 12/13/2022 at 11:30
== END ==
PROVIDERS: Family Provider Family Medicine; PCP Family Medicine; Referring Provider Family Medicine; Visit Provider Family Medicine
DX: H91.92 Unspecified hearing loss, left ear (principal); R93.89 Abnormal findings on diagnostic imaging of other specified body structures
CPT/HCPCS: 70553

== ENCOUNTER → 2023-01-24 09:24 | Outpatient (CLI) | payer MEDICARE, OTHER, SELFPAY ==
[2023-01-24 19:36] LABS: Cholesterol 195 mg/dL (140-199); HDL Cholesterol 65 mg/dL (40-60); LDL Cholesterol Calculated 78 mg/dL (<100); Triglycerides 259 mg/dL (35-150)
== END ==
PROVIDERS: Family Provider Family Medicine; PCP Family Medicine; Visit Provider Family Medicine
DX: E78.00 Pure hypercholesterolemia, unspecified (principal)
CPT/HCPCS: 80061

== ENCOUNTER → 2023-05-10 09:34 | Outpatient (CLI) | payer MEDICARE, OTHER, SELFPAY ==
[2023-05-10 20:43] LABS: Cholesterol 169 mg/dL (140-199); HDL Cholesterol 69 mg/dL (40-60); LDL Cholesterol Calculated 78 mg/dL (<100); Triglycerides 112 mg/dL (35-150)
== END ==
PROVIDERS: Family Provider Family Medicine; PCP Family Medicine; Visit Provider Family Medicine
DX: E78.00 Pure hypercholesterolemia, unspecified (principal); E78.2 Mixed hyperlipidemia
CPT/HCPCS: 80061

== ENCOUNTER → 2023-08-02 09:49 | Outpatient (CLI) | payer MEDICARE, OTHER, SELFPAY ==
[2023-08-02 20:13] LABS: Alanine Aminotransferase 44 IU/L (<50); Albumin 4.5 g/dL (3.5-5.0); Albumin Globulin Ratio 1.5 (1.0-2.8); Alkaline Phosphatase 32 U/L (38-126); Aspartate Aminotransferase 40 IU/L (17-59); BUN Creatinine Ratio 22.1 (6-22); Bilirubin Total 0.9 mg/dL (0.2-1.3); Blood Urea Nitrogen 27 mg/dL (9-20); Calcium 10.4 mg/dL (8.4-10.2); Carbon Dioxide 26 mmol/L (22-32); Chloride 102 mmol/L (98-107); Cholesterol 152 mg/dL (140-199); Estimated Glomerular Filt Rate > 60 mL/min (>60); Glucose 119 mg/dL (80-110); HDL Cholesterol 61 mg/dL (40-60); HEMOLYSIS < 15 (0-50); LDL Cholesterol Calculated 59 mg/dL (<100); Potassium 4.6 mmol/L (3.4-5.1); Sodium 137 mmol/L (137-145); Total Protein 7.5 g/dL (6.3-8.2); Triglycerides 162 mg/dL (35-150)
[2023-08-02 20:16] LABS: Add Manual Diff / Slide Review NO; Basophils Absolute Auto 0 /uL (0-100); Basophils Percent Auto 0.3 % (0-2); Eosinophils Absolute Auto 100 /uL (0-450); Hematocrit 44.7 % (41-53); Hemoglobin 15.1 g/dL (13.5-17.5); Lymphocytes Absolute Auto 1700 /uL (1100-4500); Lymphocytes Percent Auto 27.8 % (25-40); Mean Corpuscular HGB Conc 33.9 % (30-36); Mean Corpuscular Volume 94.5 fL (80-100); Monocytes Absolute Auto 600 /uL (0-900); Monocytes Percent Auto 9.7 % (3-14); Neutrophils Absolute Auto 3700 /uL (1500-7000); Neutrophils Percent Auto 60.2 % (50-75); Platelet Count 183 X10^3/uL (150-400); Red Blood Cell Count 4.73 X10^6/uL (4.5-5.9); White Blood Cell Count 6.2 X10^3/uL (4.5-11.0)
[2023-08-02 20:43] LABS: TSH w/ Reflex to FT4 2.24 uIU/mL (0.47-4.68)
[2023-08-02 20:44] LABS: Creatinine Urine Random 85.5 mg/dL
[2023-08-02 20:51] LABS: Microalbumi Creatinin Ratio Ur 121.6 ug/mg CR (<30); Microalbumin Urine Random 10.4 mg/dL (0-1.6)
== END ==
PROVIDERS: PCP Family Medicine; Visit Provider Family Medicine
DX: N18.31 Chronic kidney disease, stage 3a (principal); G56.03 Carpal tunnel syndrome, bilateral upper limbs; I48.91 Unspecified atrial fibrillation; E78.2 Mixed hyperlipidemia; E11.9 Type 2 diabetes mellitus without complications; I10 Essential (primary) hypertension; N18.9 Chronic kidney disease, unspecified
CPT/HCPCS: 80053; 80061; 82043; 82570; 83036; 84443; 85025

== ENCOUNTER → 2023-08-17 09:53 | Outpatient (CLI) | payer MEDICARE, OTHER, SELFPAY ==
--- NOTE | 2023-08-17 09:55 | DI.CT.S_ITS ---
PROCEDURE: CT CHEST WO CON INDICATIONS: solitary pulmonary nodule on x ray TECHNIQUE: Noncontrast 5 mm thick sections acquired from the pulmonary apices to the posterior costophrenic angles. 1 mm lung window, 5 mm thick coronal and sagittal and 7 mm axial MIP reformats were then acquired. For radiation dose reduction, the following was used: automated exposure control, adjustment of mA and/or kV according to patient size. COMPARISON: [facility], CT, ABDOMEN/PELVIS WITH CONTRAST, 03/25/2015, 11:26. CT, ABDOMEN W&WO CONTRAST, 07/28/2016, 11:16. FINDINGS: Image quality: Excellent. Lungs and pleura: No acute air space opacities. No pleural effusions or pneumothorax. Trace secretions in the trachea. Right lower lobe pulmonary nodule measuring 0.5 cm, (3/211). This may be have been present in 2016. Right lung base calcified granuloma. Mediastinum: Heart size is normal. Moderate coronary artery calcifications. No pericardial effusion. No mediastinal adenopathy by size criteria. Thoracic aorta and central pulmonary arteries are normal in size. Esophagus is normal in caliber. No hiatal hernia. Bones and chest wall: No suspicious bony lesions. Bridging vertebral body osteophytes. No vertebral body compression fractures. No axillary or supraclavicular adenopathy by size criteria. Thyroid gland is unremarkable. Abdomen: Hypodensity at the dome of the liver, (2/49), unchanged since 2016 and most consistent with a benign cysts. Left nephrectomy. IMPRESSION: 1. Right lower lobe pulmonary nodule measuring 0.5 cm. Indeterminate. Recommend follow-up chest CT in 6 months. 2. Left nephrectomy. Dictated by: Shane Franks M.D. on 08/17/2023 at 14:54 Approved by: Shane Franks M.D. on 08/17/2023 at 15:03
== END ==
PROVIDERS: PCP Family Medicine; Referring Provider Family Medicine; Visit Provider Family Medicine
DX: R91.1 Solitary pulmonary nodule (principal); Z90.5 Acquired absence of kidney
CPT/HCPCS: 71250

== ENCOUNTER → 2023-12-06 12:54 | Outpatient (CLI) | payer MEDICARE, OTHER, SELFPAY ==
[2023-12-06 19:23] LABS: Add Manual Diff / Slide Review NO; Basophils Absolute Auto 0 /uL (0-100); Basophils Percent Auto 0.4 % (0-2); Eosinophils Absolute Auto 100 /uL (0-450); Eosinophils Percent Auto 1.9 % (2-4); Hematocrit 43.3 % (41-53); Hemoglobin 14.4 g/dL (13.5-17.5); Lymphocytes Absolute Auto 2100 /uL (1100-4500); Lymphocytes Percent Auto 35.9 % (25-40); Mean Corpuscular HGB Conc 33.3 % (30-36); Mean Corpuscular Hemoglobin 31.7 PG (26-34); Mean Corpuscular Volume 95.2 fL (80-100); Monocytes Absolute Auto 600 /uL (0-900); Neutrophils Absolute Auto 3000 /uL (1500-7000); Neutrophils Percent Auto 50.8 % (50-75); Platelet Count 173 X10^3/uL (150-400); Red Blood Cell Count 4.54 X10^6/uL (4.5-5.9); Red Cell Distribution Width 13.6 % (11.6-14.8); White Blood Cell Count 5.9 X10^3/uL (4.5-11.0)
[2023-12-06 19:30] LABS: BUN Creatinine Ratio 24.3 (6-22); Blood Urea Nitrogen 28 mg/dL (9-20); Calcium 10.5 mg/dL (8.4-10.2); Carbon Dioxide 26 mmol/L (22-32); Chloride 101 mmol/L (98-107); Estimated Glomerular Filt Rate > 60 mL/min (>60); Glucose 111 mg/dL (80-110); HEMOLYSIS 19 (0-50); Potassium 4.5 mmol/L (3.4-5.1); Sodium 134 mmol/L (137-145)
[2023-12-06 20:03] LABS: Prostate Specific Antigen < 0.064 ng/mL (0.10-4.00)
[2023-12-06 20:06] LABS: Creatinine Urine Random 71.5 mg/dL
[2023-12-06 20:07] LABS: Microalbumi Creatinin Ratio Ur 177.6 ug/mg CR (<30); Microalbumin Urine Random 12.7 mg/dL (0-1.6)
== END ==
PROVIDERS: PCP Family Medicine; Visit Provider Family Medicine
DX: E11.9 Type 2 diabetes mellitus without complications (principal); I48.20 Chronic atrial fibrillation, unspecified; Z85.46 Personal history of malignant neoplasm of prostate; R91.1 Solitary pulmonary nodule; E78.2 Mixed hyperlipidemia; N18.9 Chronic kidney disease, unspecified; I10 Essential (primary) hypertension
CPT/HCPCS: 80048; 82043; 82570; 83036; 84153; 85025

== ENCOUNTER → 2023-12-21 11:24 | Outpatient (CLI) | payer MEDICARE, OTHER, SELFPAY ==
[2023-12-21 20:58] LABS: Magnesium 1.7 mg/dL (1.6-2.3)
[2023-12-21 21:10] LABS: Vitamin D 25 Hydroxy (D3) 79.9 ng/mL (30.0-100.0)
[2023-12-25 16:12] LABS: Alpha-1-Globulin 0.2 g/dL (0.0-0.4); Alpha-2-Globulin 0.8 g/dL (0.4-1.0); Gamma Globulin 0.9 g/dL (0.4-1.8); Globulin Total 2.9 g/dL (2.2-3.9); Protein, Total 6.9 g/dL (6.0-8.5)
[2023-12-26 18:21] LABS: Calcium 10.3 mg/dL (8.6-10.2); Parathyroid Hormone, Intact 11 pg/mL (15-65)
== END ==
PROVIDERS: PCP Family Medicine; Visit Provider Family Medicine
DX: E83.52 Hypercalcemia (principal)
CPT/HCPCS: 82306; 82310; 83735; 83970; 84155; 84165

== ENCOUNTER → 2024-02-06 08:37 | Outpatient (CLI) | payer MEDICARE, OTHER, SELFPAY ==
--- NOTE | 2024-02-06 08:39 | DI.CT.S_ITS ---
PROCEDURE: CT CHEST WO CON INDICATIONS: Follow up pulm nodule right lower lobe TECHNIQUE: Noncontrast 2.0-2.5 mm thick sections acquired from the pulmonary apices to the posterior costophrenic angles. 7 mm thick axial MIP and 5 mm coronal and sagittal reformats were then acquired. For radiation dose reduction, the following was used: automated exposure control, adjustment of mA and/or kV according to patient size. COMPARISON: [facility], CT, CT CHEST WO CON, 08/17/2023, 9:56. FINDINGS: Image quality: Diagnostic. Lower Neck: No enlarged lymph nodes. Thyroid: No thyroid nodules which require sonographic follow up, per consensus guidelines. Axillae: No enlarged lymph nodes. Chest Wall: Unremarkable. Bones: Unremarkable. Lungs and Pleura: No pneumothorax or pleural effusions. 3 millimeter right upper lobe pulmonary nodule 105/3, 6 x 6 x 6 millimeter right lower lobe pulmonary nodule 205/3, was measuring 6 x 6 x 4 millimeters on prior study (AP by transverse by longitudinal) 5 millimeter right lower lobe pulmonary nodule 219/3, 3 millimeter right lower lobe nodule, calcified, 269/3, Ill-defined juxtapleural calcific densities of the right pleura 74/3, unchanged Heart: Heart size is normal. No pericardial effusion. Thoracic Vessels: The aorta and pulmonary arteries demonstrate normal size. Mediastinum and Nan: No enlarged lymph nodes. Esophagus: No wall thickening. No hiatal hernia. Upper Abdomen: 1.1 centimeter hypodensity of the dome of the liver, statistically most likely a cyst versus hemangioma, unchanged in size. Nonvisualized left kidney. Surgical clips in the left renal fossa. IMPRESSION: Interval increase in size of right lower lobe lung lesion from 4 to 6 millimeters in longitudinal plane; suspicious. Recommend follow-up CT in 6 months. Fleischner Society criteria for SOLID lung nodule followup. Nodule size (mm)Low-risk patientHigh-risk patient<6 (single or multiple)No routine followup.Optional CT at 12 months. 6-8 (single or multiple)CT at 6-12 months, then optional CT at 18-24 mo.CT at 6-12 months, then CT at 18-24 months. >8 (single)CT at 3 months, PET-CT, or biopsy. Same as for low-risk pts. >8 (multiple)CT at 3-6 months, then optional CT at 18-24 mo.CT at 3-6 months, then CT at 18-24 months. Fleischner Society criteria for SUB-SOLID lung nodule followup. Solitary pure ground-glass nodules<6 mm (ground glass or part solid)No followup needed. 6 mm or larger (ground glass)CT at 6-12 months to confirm persistence, then CT every 2 years until 5 years.6 mm or larger (part solid)CT at 3-6 months to confirm persistence, then annual CT until 5 years if unchanged and solid component remains <6 mm. Multiple sub-solid nodules<6 mmCT at 3-6 months, then CT consider at 2 & 4 years for high risk patients. [address] at 3-6 months. Subsequent management based on most suspicious lesions. Recommendations do not apply to lung cancer screening, patients with immunosuppression, or patients with known primary cancer. Dictated by: Tyler Lim M.D. on 02/06/2024 at 13:00 Approved by: Tyler Lim M.D. on 02/06/2024 at 13:34
== END ==
PROVIDERS: PCP Family Medicine; Referring Provider Family Medicine; Visit Provider Family Medicine
DX: R91.8 Other nonspecific abnormal finding of lung field (principal)
CPT/HCPCS: 71250

== ENCOUNTER → 2024-05-06 09:15 | Outpatient (CLI) | payer MEDICARE, OTHER, SELFPAY ==
[2024-05-06 20:05] LABS: BUN Creatinine Ratio 32.8 (6-22); Blood Urea Nitrogen 43 mg/dL (9-20); Calcium 10.3 mg/dL (8.4-10.2); Carbon Dioxide 24 mmol/L (22-32); Chloride 106 mmol/L (98-107); Cholesterol 180 mg/dL (140-199); Estimated Glomerular Filt Rate 56 mL/min (>60); Glucose 110 mg/dL (80-110); HDL Cholesterol 71 mg/dL (40-60); HEMOLYSIS < 15 (0-50); LDL Cholesterol Calculated 76 mg/dL (<100); Potassium 4.5 mmol/L (3.4-5.1); Sodium 136 mmol/L (137-145); Triglycerides 163 mg/dL (35-150)
[2024-05-06 20:12] LABS: Hemoglobin A1C% w Est Avg Glu 6.1 % (4.0-6.0)
[2024-05-06 20:18] LABS: Microalbumin Urine Random 14.4 mg/dL (0-1.6)
== END ==
PROVIDERS: PCP Family Medicine; Visit Provider Family Medicine
DX: I48.20 Chronic atrial fibrillation, unspecified (principal); I10 Essential (primary) hypertension; E78.2 Mixed hyperlipidemia; E11.29 Type 2 diabetes mellitus with other diabetic kidney complication; R80.9 Proteinuria, unspecified
CPT/HCPCS: 80048; 80061; 82043; 82570; 83036

== ENCOUNTER → 2024-06-05 09:32 | Outpatient (CLI) | payer MEDICARE, OTHER, SELFPAY ==
--- NOTE | 2024-06-05 09:33 | DI.CT.S_ITS ---
PROCEDURE: CT CHEST WO CON INDICATIONS: Follow-up pulmonary nodule TECHNIQUE: Noncontrast 2.0-2.5 mm thick sections acquired from the pulmonary apices to the posterior costophrenic angles. 7 mm thick axial MIP and 5 mm coronal and sagittal reformats were then acquired. For radiation dose reduction, the following was used: automated exposure control, adjustment of mA and/or kV according to patient size. COMPARISON: [facility], CT, CT CHEST WO CON, 02/06/2024, 8:42. FINDINGS: Image quality: Diagnostic. Lower Neck: No enlarged lymph nodes. Thyroid: No thyroid nodule. Axillae: There is a mildly prominent 10 mm right hilar lymph node which has decreased from prior exam. Chest Wall: Unremarkable. Bones: There are multiple anterior bridging osteophytes throughout the visualized thoracic spine. Lungs and Pleura: No pneumothorax or pleural effusions. No significant interval change in a round solid pulmonary nodule within the posterior right lower lobe currently measuring 5 x 5 mm, compared to 5 x 4 mm. Heart: Heart size is normal. No pericardial effusion. Thoracic Vessels: The aorta and pulmonary arteries demonstrate normal size. There are multiple coronary artery calcifications and calcifications within the visualized aorta and its tributaries. Mediastinum and Nan: No enlarged lymph nodes. Esophagus: No wall thickening. No hiatal hernia. Upper Abdomen: There has been interval increase in size of a 1.5 cm hypodense lesion within the hepatic dome that previously measured 1.2 cm. There is a small calcification within the head and body of the pancreas. There are clips within the left upper quadrant. There is a splenule. Otherwise, the visualized upper abdomen is within normal limits. IMPRESSION: 1. No significant interval change in a round solid pulmonary nodule within the posterior right lower lobe measuring up to 5 mm, compared to 5 mm. No new pulmonary nodule. 2. There has been slight interval increase in a hypodense lesion within the hepatic dome that currently measures 1.5 cm, compared to 1.2 cm. An MRI of the abdomen can be performed for further characterization. 3. There are multiple anterior bridging osteophytes throughout the visualized thoracic spine. This finding is typically seen with diffuse idiopathic skeletal hyperostosis. 4. There are some calcifications within the pancreas which may be a sequela of chronic pancreatitis. 5. There are coronary artery calcifications and calcifications throughout the visualized aorta and its tributaries. Fleischner Society criteria for SOLID lung nodule followup. Nodule size (mm)Low-risk patientHigh-risk patient<6 (single or multiple)No routine followup.Optional CT at 12 months. 6-8 (single or multiple)CT at 6-12 months, then optional CT at 18-24 mo.CT at 6-12 months, then CT at 18-24 months. >8 (single)CT at 3 months, PET-CT, or biopsy. Same as for low-risk pts. >8 (multiple)CT at 3-6 months, then optional CT at 18-24 mo.CT at 3-6 months, then CT at 18-24 months. Fleischner Society criteria for SUB-SOLID lung nodule followup. Solitary pure ground-glass nodules<6 mm (ground glass or part solid)No followup needed. 6 mm or larger (ground glass)CT at 6-12 months to confirm persistence, then CT every 2 years until 5 years.6 mm or larger (part solid)CT at 3-6 months to confirm persistence, then annual CT until 5 years if unchanged and solid component remains <6 mm. Multiple sub-solid nodules<6 mmCT at 3-6 months, then CT consider at 2 & 4 years for high risk patients. [address] at 3-6 months. Subsequent management based on most suspicious lesions. Recommendations do not apply to lung cancer screening, patients with immunosuppression, or patients with known primary cancer. Dictated by: Rupert Mark M.D. on 06/05/2024 at 10:39 Approved by: Rupert Mark M.D. on 06/05/2024 at 11:15
== END ==
PROVIDERS: PCP Family Medicine; Referring Provider Family Medicine; Visit Provider Family Medicine
DX: R91.1 Solitary pulmonary nodule (principal); I25.10 Atherosclerotic heart disease of native coronary artery without angina pectoris; I70.0 Atherosclerosis of aorta; E83.52 Hypercalcemia; R74.8 Abnormal levels of other serum enzymes; K76.9 Liver disease, unspecified; K86.89 Other specified diseases of pancreas; Z85.528 Personal history of other malignant neoplasm of kidney; Z85.46 Personal history of malignant neoplasm of prostate
CPT/HCPCS: 71250

== ENCOUNTER → 2024-12-31 10:22 | Outpatient (CLI) | payer MEDICARE, OTHER, SELFPAY ==
[2024-12-31 18:53] LABS: Add Manual Diff / Slide Review NO; Basophils Absolute Auto 0 /uL (0-100); Basophils Percent Auto 0.4 % (0-2); Eosinophils Absolute Auto 200 /uL (0-450); Eosinophils Percent Auto 3.1 % (2-4); Hematocrit 45.9 % (41-53); Hemoglobin 15.4 g/dL (13.5-17.5); Lymphocytes Absolute Auto 2500 /uL (1100-4500); Lymphocytes Percent Auto 37.9 % (25-40); Mean Corpuscular HGB Conc 33.5 % (30-36); Mean Corpuscular Hemoglobin 31.7 PG (26-34); Mean Corpuscular Volume 94.4 fL (80-100); Monocytes Absolute Auto 600 /uL (0-900); Monocytes Percent Auto 9.8 % (3-14); Neutrophils Absolute Auto 3200 /uL (1500-7000); Neutrophils Percent Auto 48.8 % (50-75); Platelet Count 188 X10^3/uL (150-400); Red Blood Cell Count 4.86 X10^6/uL (4.5-5.9); Red Cell Distribution Width 13.2 % (11.6-14.8); White Blood Cell Count 6.5 X10^3/uL (4.5-11.0)
[2024-12-31 19:08] LABS: Hemoglobin A1C% w Est Avg Glu 6.1 % (4.0-6.0)
[2024-12-31 19:26] LABS: Creatinine Urine Random 139.32 mg/dL
[2024-12-31 19:28] LABS: BUN Creatinine Ratio 22.4 (6-22); Blood Urea Nitrogen 33 mg/dL (9-20); Calcium 10.4 mg/dL (8.4-10.2); Carbon Dioxide 24 mmol/L (22-32); Chloride 101 mmol/L (98-107); Cholesterol 189 mg/dL (140-199); Estimated Glomerular Filt Rate 49 mL/min (>60); Glucose 123 mg/dL (80-110); HDL Cholesterol 56 mg/dL (40-60); HEMOLYSIS 15 (0-50); LDL Cholesterol Calculated 87 mg/dL (<100); Potassium 4.6 mmol/L (3.4-5.1); Sodium 136 mmol/L (137-145); Triglycerides 232 mg/dL (35-150)
[2024-12-31 19:31] LABS: Microalbumin Urine Random 13.8 mg/dL (0-1.6)
[2024-12-31 19:54] LABS: Prostate Specific Antigen < 0.064 ng/mL (0.10-4.00)
[2025-01-02 08:09] LABS: Calcium 10.3 mg/dL (8.6-10.2); Parathyroid Hormone, Intact 16 pg/mL (15-65)
== END ==
PROVIDERS: PCP Family Medicine; Visit Provider Family Medicine
DX: I48.20 Chronic atrial fibrillation, unspecified (principal); E11.29 Type 2 diabetes mellitus with other diabetic kidney complication; Z85.46 Personal history of malignant neoplasm of prostate; I10 Essential (primary) hypertension; E78.2 Mixed hyperlipidemia; R80.9 Proteinuria, unspecified; E11.9 Type 2 diabetes mellitus without complications; E83.52 Hypercalcemia; R91.1 Solitary pulmonary nodule; Z85.528 Personal history of other malignant neoplasm of kidney; R74.8 Abnormal levels of other serum enzymes
CPT/HCPCS: 80048; 80061; 82043; 82310; 82570; 83036; 83970; 84153; 84155; 84165; 85025

== ENCOUNTER → 2025-03-13 11:03 | Outpatient (CLI) | payer MEDICARE, OTHER, SELFPAY ==
[2025-03-13 18:47] LABS: Add Manual Diff / Slide Review NO; Basophils Absolute Auto 0 /uL (0-100); Basophils Percent Auto 0.6 % (0-2); Eosinophils Absolute Auto 200 /uL (0-450); Hemoglobin 14.4 g/dL (13.5-17.5); Lymphocytes Absolute Auto 1800 /uL (1100-4500); Lymphocytes Percent Auto 28.1 % (25-40); Mean Corpuscular HGB Conc 32.8 % (30-36); Mean Corpuscular Hemoglobin 30.9 PG (26-34); Monocytes Absolute Auto 600 /uL (0-900); Monocytes Percent Auto 9.4 % (3-14); Neutrophils Absolute Auto 3700 /uL (1500-7000); Neutrophils Percent Auto 58.9 % (50-75); Platelet Count 168 X10^3/uL (150-400); Red Blood Cell Count 4.68 X10^6/uL (4.5-5.9); Red Cell Distribution Width 13.6 % (11.6-14.8); White Blood Cell Count 6.3 X10^3/uL (4.5-11.0)
[2025-03-13 19:00] LABS: Hemoglobin A1C% w Est Avg Glu 6.2 % (4.0-6.0)
[2025-03-13 19:06] LABS: BUN Creatinine Ratio 32.6 (6-22); Blood Urea Nitrogen 46 mg/dL (9-20); Calcium 10.4 mg/dL (8.4-10.2); Carbon Dioxide 23 mmol/L (22-32); Chloride 104 mmol/L (98-107); Cholesterol 155 mg/dL (140-199); Estimated Glomerular Filt Rate 51 mL/min (>60); Glucose 165 mg/dL (70-99); HDL Cholesterol 45 mg/dL (40-60); HEMOLYSIS < 15 (0-50); LDL Cholesterol Calculated 63 mg/dL (<100); Potassium 4.3 mmol/L (3.4-5.1); Sodium 138 mmol/L (137-145); Triglycerides 233 mg/dL (35-150)
[2025-03-13 19:39] LABS: Prostate Specific Antigen < 0.064 ng/mL (0.10-4.00)
[2025-03-13 20:22] LABS: Creatinine Urine Random 105.54 mg/dL
[2025-03-13 20:27] LABS: Microalbumin Urine Random 6.3 mg/dL (0-1.6)
== END ==
PROVIDERS: PCP Family Medicine; Visit Provider Family Medicine
DX: I48.20 Chronic atrial fibrillation, unspecified (principal); E11.29 Type 2 diabetes mellitus with other diabetic kidney complication; Z85.46 Personal history of malignant neoplasm of prostate; N18.31 Chronic kidney disease, stage 3a; I12.9 Hypertensive chronic kidney disease with stage 1 through stage 4 chronic kidney disease, or unspecified chronic kidney disease; R80.9 Proteinuria, unspecified; E78.2 Mixed hyperlipidemia; E83.52 Hypercalcemia
CPT/HCPCS: 80048; 80061; 82043; 82570; 83036; 84153; 85025

== ENCOUNTER 2025-04-21 11:18 | Emergency (ER) | payer MEDICARE, OTHER, SELFPAY ==
[2025-04-21 11:30] VITALS: BP 162/77; PULSE 90; RESP 18; TEMP 36.2; O2SAT 99; BMI 28.7
--- NOTE | 2025-04-21 11:44 | DI.RAD.S_ITS ---
PROCEDURE: XR RIBS LT MIN 3V W CXR1V INDICATIONS: Fall left chest pain on thinners TECHNIQUE: 2 views of the ribs were acquired, along with a single view chest. COMPARISON: None. FINDINGS: Surgical changes and devices: Surgical clips in the left upper quadrant. Bones and chest wall: Displaced left lateral 8th rib fracture. Minimally displaced left anterior 11th fracture. Lungs and pleura: No pleural effusions or pneumothorax. Lungs appear clear. Mediastinum: Mediastinal contours appear normal. Heart size is normal. IMPRESSION: Displaced left lateral 8th rib fracture. Minimally displaced left anterior 11th rib fracture. No pneumothorax. Dictated by: Nick Olivia M.D. on 04/21/2025 at 12:25 Approved by: Nick Olivia M.D. on 04/21/2025 at 12:26
--- NOTE | 2025-04-21 11:50 | DI.RAD.S_ITS ---
PROCEDURE: XR HAND LT MIN 3V INDICATIONS: Fall, on thinners TECHNIQUE: 3 views of the hand(s) acquired. COMPARISON: None. FINDINGS: Bones: No fractures or dislocations. Carpal bones are normally aligned. No suspicious bony lesions. 1st CMC joint space narrowing with associated osteophytosis and sclerosis. Interphalangeal joint space narrowing with osteophytosis. Calcification with irregular margins off the base of the 5th metacarpal measuring 3 mm. Soft tissues: No suspicious soft tissue calcifications. IMPRESSION: Calcification with irregular margins at the base of the 5th metacarpal measuring 3.3 mm. Findings are concerning for a dorsal plate fracture. Correlate with point tenderness. 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 Dictated by: Nick Olivia M.D. on 04/21/2025 at 12:22 Approved by: Nick Olivia M.D. on 04/21/2025 at 12:25
--- NOTE | 2025-04-21 11:50 | DI.RAD.S_ITS ---
PROCEDURE: XR SHOULDER LT MIN 2V INDICATIONS: Fall, on thinners. Pain TECHNIQUE: 3 views of the shoulder were acquired. COMPARISON: None. FINDINGS: Bones: No fractures or dislocations. No suspicious bony lesions. Visualized ribs appear intact. Soft tissues: No suspicious soft tissue calcifications. IMPRESSION: No acute bony abnormality. Dictated by: Nick Olivia M.D. on 04/21/2025 at 12:26 Approved by: Nick Olivia M.D. on 04/21/2025 at 12:26
--- NOTE | 2025-04-21 11:58 | ED.FALL ---
HPI - Fall General Chief Complaint: Fall Stated Complaint: Fell on left side , On blood thinners Time Seen by Provider: 04/21/25 11:43 Source: patient Mode of arrival: Ambulatory History of Present Illness HPI Narrative: Patient here with for ground level fall. Patient is on blood thinners, Eliquis. Patient was walking across the parking lot at [facility]. Lost his balance and fell onto the left side. Denies denies hitting his head or neck. Only complains of left shoulder pain left rib pain and abrasion to the left palm. Bleeding is controlled. Tetanus is up-to-date. Patient complains mostly of the rib pain. is driving Related Data Home Medications ?Medication ?Instructions ?Recorded ?Confirmed cholecalciferol (vitamin D3) 50 50 mcg PO DAILY 03/04/21 04/18/25 mcg (2,000 unit) capsule (Vitamin D3) multivitamin (Daily Multi-Vitamin 1 tab PO DAILY 03/04/21 04/18/25 tablet) vitamin B complex [B PO 05/14/21 04/18/25 Complex-Vitamin B12] Previous Rx's ?Medication ?Instructions ?Recorded blood sugar diagnostic (Blood #100 ea 01/25/22 Glucose Test strips) blood-glucose meter (Accu-Chek #1 ea 01/31/22 Sherrie Plus Meter) lancets 33 gauge #100 ea 01/31/22 apixaban 5 mg tablet (Eliquis) 5 mg PO BID #180 tabs 06/10/24 ezetimibe 10 mg tablet (Zetia) 10 mg PO DAILY #90 tabs 06/18/24 pravastatin 20 mg tablet 20 mg PO BEDTIME #90 tabs 06/18/24 amlodipine 2.5 mg tablet 2.5 mg PO DAILY #90 tabs 01/06/25 atenolol 100 mg tablet 100 mg PO DAILY #90 tabs 01/06/25 losartan 100 See Rx Instructions .Route 02/18/25 mg-hydrochlorothiazide 12.5 mg .COMPLEX #90 tabs tablet metformin 500 mg tablet 500 mg PO DAILY #90 tabs 02/18/25 hydrocodone 5 mg-acetaminophen 325 1 tab PO Q6H PRN pain #20 tabs 04/21/25 mg tablet Allergies Allergy/AdvReac Type Severity Reaction Status Date / Time doxycycline AdvReac Intermediate Diarrhea, Verified 05/27/24 12:32 nausea terbinafine AdvReac Intermediate Verified 05/27/24 12:32 Review of Systems Review of Systems Narrative: GENERAL: Negative chills, fatigue, malaise, fever, sweats. HEENT: Negative sinus pain, ear pain, sore throat RESPIRATORY: Negative dyspnea, cough CARDIOVASCULAR: Negative chest pain, palpitations GASTROINTESTINAL: Negative vomiting, nausea, abdominal pain : Negative dysuria, frequency, hematuria MUSCULOSKELETAL: Positive muscle or bony pain SKIN: Negative rash, skin lesions, positive skin wound NEUROLOGIC: Negative weakness, numbness ROS Unobtainable: All systems reviewed & are unremarkable except as noted in HPI and below Patient History Medical History (Updated 04/21/25 @ 12:53 by Fabian Simms MD) Measles Chicken pox Kidney stones History of prostate cancer Surgical History Status post nephrectomy Family History Father Diabetes mellitus Mother History of heart disease Social History Smoking Status: Never smoker Smoking Status: Never smoker alcohol intake frequency: 0-2 drinks per day Alcohol type: wine Exam Narrative Exam Narrative: GENERAL: in no distress, not toxic not dyspneic HEAD: Normocephalic. Nontender scalp and face. EYES: Pupils equal round ENT: Mucous membranes moist. NECK: Trachea midline. No midline tenderness or step-off of the cervical thoracic or lumbar spine. No bruising seen of the back. CARDIOVASCULAR: Regular rate and rhythm RESPIRATORY: Clear to auscultation. Breath sounds equal bilaterally. No wheezes, rales, or rhonchi. Examination left ribs, Reproducible lateral ribs inferiorly/laterally as well as mid rib. No flail or crepitus. No bruising seen on the left ribs. GASTROINTESTINAL: Abdomen soft, non-tender EXTREMITIES: No gross deformities. Examination left upper extremity. Small abrasion to the base finger palm surface of the left hand. However strong [employer] and radial pulse light touch intact to fingers and thumbs. Nontender on the 5th metacarpal bone. At the base as well as the MCP area. Nontender wrist and elbow. There is small bruising to the elbow laterally but patient has full active range of motion supination pronation flexion-extension at the elbow. Mild diffuse tenderness of the left shoulder but no drop off or gross deformity. Patient able to touch his right shoulder with the left hand. Patient has had previous injuries to the shoulder he states. BACK: No flank tenderness. NEURO: AOx4. Clear speech SKIN: Warm and dry PSYCH: Not anxious, is cooperative Initial Vital Signs Initial Vital Signs: Vital Signs Temperature 97.1 F L 04/21/25 11:30 Pulse Rate 90 04/21/25 11:30 Respiratory Rate 18 04/21/25 11:30 Blood Pressure 162/77 H 04/21/25 11:30 Pulse Oximetry 99 04/21/25 11:30 Oxygen Delivery Method Room Air 04/21/25 11:30 Course Orders Ordered: Discontinued Medications Hydrocodone Bitart/Acetaminophen (Hydrocodone/Acet 5/325 Tablet) 2 tab PO NOW ONE Stop: 04/21/25 12:20 Last Admin: 04/21/25 12:27 Dose: 2 tab Documented By: SONIYA Ondansetron HCl (Ondansetron 4 Mg Odt) 4 mg SL NOW ONE Stop: 04/21/25 12:20 Last Admin: 04/21/25 12:27 Dose: 4 mg Documented By: SONIYA Vital Signs Vital signs: Vital Signs - 8 hr 04/21/25 11:30 Temperature 97.1 F L Pulse Rate 90 Respiratory Rate 18 Blood Pressure 162/77 H Pulse Oximetry 99 Oxygen Delivery Method Room Air MDM - Fall Imaging Data Extremity x-ray #1: Radiologist's Impression: [address] [address] XRay Report Signed Patient: Wayne Braswell MR#: [id number] : 1945 Acct:[id number] Age/Sex: 80 / M Date of Service: 04/21/25 Loc: ED Accession Number: [id number] Procedure: XR shoulder LT 2+ views Ordering Provider: Fabian Simms MD PROCEDURE: XR SHOULDER LT MIN 2V INDICATIONS: Fall, on thinners. Pain TECHNIQUE: 3 views of the shoulder were acquired. COMPARISON: None. FINDINGS: Bones: No fractures or dislocations. No suspicious bony lesions. Visualized ribs appear intact. Soft tissues: No suspicious soft tissue calcifications. IMPRESSION: No acute bony abnormality. Dictated by: Nick Olivia M.D. on 04/21/2025 at 12:26 Approved by: Nick Olivia M.D. on 04/21/2025 at 12:26 Extremity x-ray #2: Radiologist's Impression: [address] [address] XRay Report Signed Patient: Wayne Braswell MR#: [id number] : 1945 Acct:[id number] Age/Sex: 80 / M Date of Service: 04/21/25 Loc: ED Accession Number: [id number] Procedure: XR hand LT min 3V Ordering Provider: Fabian Simms MD PROCEDURE: XR HAND LT MIN 3V INDICATIONS: Fall, on thinners TECHNIQUE: 3 views of the hand(s) acquired. COMPARISON: None. FINDINGS: Bones: No fractures or dislocations. Carpal bones are normally aligned. No suspicious bony lesions. 1st CMC joint space narrowing with associated osteophytosis and sclerosis. Interphalangeal joint space narrowing with osteophytosis. Calcification with irregular margins off the base of the 5th metacarpal measuring 3 mm. Soft tissues: No suspicious soft tissue calcifications. IMPRESSION: Calcification with irregular margins at the base of the 5th metacarpal measuring 3.3 mm. Findings are concerning for a dorsal plate fracture. Correlate with point tenderness. 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 Dictated by: Nick Olivia M.D. on 04/21/2025 at 12:22 Approved by: Nick Olivia M.D. on 04/21/2025 at 12:25 X-ray left ribs: Radiologist's Impression: [address] [address] XRay Report Signed Patient: Wayne Braswell MR#: [id number] : 1945 Acct:[id number] Age/Sex: 80 / M Date of Service: 04/21/25 Loc: ED Accession Number: [id number] Procedure: XR ribs LT min 3V w CXR1V Ordering Provider: Fabian Simms MD PROCEDURE: XR RIBS LT MIN 3V W CXR1V INDICATIONS: Fall left chest pain on thinners TECHNIQUE: 2 views of the ribs were acquired, along with a single view chest. COMPARISON: None. FINDINGS: Surgical changes and devices: Surgical clips in the left upper quadrant. Bones and chest wall: Displaced left lateral 8th rib fracture. Minimally displaced left anterior 11th fracture. Lungs and pleura: No pleural effusions or pneumothorax. Lungs appear clear. Mediastinum: Mediastinal contours appear normal. Heart size is normal. IMPRESSION: Displaced left lateral 8th rib fracture. Minimally displaced left anterior 11th rib fracture. No pneumothorax. Dictated by: Nick Olivia M.D. on 04/21/2025 at 12:25 Approved by: Nick Olivia M.D. on 04/21/2025 at 12:26 [facility] Narrative Medical decision making narrative: Patient here with for ground level fall. Patient is on blood thinners, Eliquis. Patient was walking across the parking lot at [employer]. Lost his balance and fell onto the left side. Denies denies hitting his head or neck. Only complains of left shoulder pain left rib pain and abrasion to the left palm. Bleeding is controlled. Tetanus is up-to-date. Patient complains mostly of the rib pain. is driving After history and exam, x-ray right ribs right shoulder right hand PubNativetracy [facility] Medical records reviewed: No recent visit for this complaint Differential considered: Includes but not limited to rib fracture/contusion pneumothorax hemothorax shoulder fracture dislocation contusion hand abrasion Imaging studies independently reviewed: X-ray left rib series shows fracture of rib 8, 11. Left shoulder x-ray no acute finding x-ray left hand no acute finding Re-evaluations: 12:54 p.m.. Updated patient results of broken ribs. Pain is controlled. Return precautions reviewed. is driving. Wound care instructions provided. He desires discharge home. Discussion: Appropriate for discharge home. Exam is reassuring. Return precautions reviewed with patient. Clinically x-ray of the hand does not clinically correlate as patient has no metacarpal/hand pain. Return precautions reviewed and they desire discharge home. is driving. Pain is controlled. Diagnosis: Rib fracture hand abrasion shoulder strain Discharge Plan Departure Patient Disposition: Home Clinical Impression: Multiple rib fractures Qualifiers: Encounter type: initial encounter Fracture type: closed Laterality: left Qualified Code(s): S22.42XA - Multiple fractures of ribs, left side, initial encounter for closed fracture Left shoulder strain Qualifiers: Encounter type: initial encounter Qualified Code(s): S46.912A - Strain of unspecified muscle, fascia and tendon at shoulder and upper arm level, left arm, initial encounter Abrasion of hand, left Qualifiers: Encounter type: initial encounter Qualified Code(s): S60.512A - Abrasion of left hand, initial encounter Instructions: How to Use an Incentive Spirometer, DI for Rib Fracture, DI for Shoulder Sprain, DI for Abrasion Activity Restrictions/Additional Instructions: No driving or operating machinery today or when taking prescribed pain medication. Please see your family doctor for re-evaluation within a week. Please use the incentive spirometer every 2 hours while awake to promote good air movement through your lungs and to prevent infection. Clean your skin wound on your hand daily with warm soap and water and apply a thin layer of topical antibiotic. Return if worse if any questions or concerns. Prescriptions: New hydrocodone-acetaminophen 5-325 mg tablet 1 tab PO Q6H PRN (Reason: pain) Qty: 20 0RF No Action (DME) blood-glucose meter [Accu-Chek Sherrie Plus Meter] Misc See Rx Instructions .ROUTE .COMPLEX Qty: 1 0RF Dose Instruction: USE TO CHECK GLUCOSE ONCE DAILY Rx Instructions: USE TO CHECK GLUCOSE ONCE DAILY (DME) lancets 33 gauge misc See Rx Instructions .Route Qty: 100 4RF Rx Instructions: Test blood sugar once daily Eliquis 5 mg tablet 5 mg PO BID Qty: 180 3RF pravastatin 20 mg tablet 20 mg PO BEDTIME Qty: 90 3RF ezetimibe [Zetia] 10 mg tablet 10 mg PO DAILY Qty: 90 3RF metformin 500 mg tablet 500 mg PO DAILY Qty: 90 1RF losartan-hydrochlorothiazide 100-12.5 mg tablet See Rx Instructions .ROUTE .COMPLEX Qty: 90 1RF Dose Instruction: TAKE 1 TABLET EVERY DAY Rx Instructions: TAKE 1 TABLET EVERY DAY vitamin B complex [B Complex-Vitamin B12] PO cholecalciferol (vitamin D3) [Vitamin D3] 50 mcg (2,000 unit) capsule 50 mcg PO DAILY multivitamin [Daily Multi-Vitamin] Tablet 1 tab PO DAILY (DME) Blood Glucose Test Strip See Rx Instructions .Route Qty: 100 4RF Rx Instructions: Test blood sugar once daily atenolol 100 mg tablet 100 mg PO DAILY Qty: 90 3RF amlodipine 2.5 mg tablet 2.5 mg PO DAILY Qty: 90 3RF Referrals: Garrett Morales MD [Primary Care Provider, Family Practice] Stand Alone Forms: Patient Portal/API
[2025-04-21] MEDS: ONDANSETRON 4 MG ODT SL (12:27)
[2025-04-21] MEDS: HYDROCODONE/ACET 5/325 TABLET 2 TAB PO (12:27)
[2025-04-21 13:08] VITALS: BP 130/66; PULSE 76; RESP 14; O2SAT 98
== END 2025-04-21 13:08 | disposition home or self-care (01) ==
PROVIDERS: Emergency Provider Emergency Medicine; PCP Family Medicine
DX: S22.42XA Multiple fractures of ribs, left side, initial encounter for closed fracture (principal); S46.912A Strain of unspecified muscle, fascia and tendon at shoulder and upper arm level, left arm, initial encounter; S60.512A Abrasion of left hand, initial encounter; W01.0XXA Fall on same level from slipping, tripping and stumbling without subsequent striking against object, initial encounter; Y93.01 Activity, walking, marching and hiking; Y92.512 Supermarket, store or market as the place of occurrence of the external cause; Z79.01 Long term (current) use of anticoagulants
CPT/HCPCS: 71101; 73030; 73130; 99283

== ENCOUNTER → 2025-06-04 13:01 | Outpatient (CLI) | payer MEDICARE, OTHER, SELFPAY ==
[2025-06-04 19:56] LABS: Blood Urea Nitrogen 38 mg/dL (9-20); Calcium 10.0 mg/dL (8.4-10.2); Carbon Dioxide 24 mmol/L (22-32); Chloride 102 mmol/L (98-107); Estimated Glomerular Filt Rate 52 mL/min (>60); Glucose 109 mg/dL (70-99); HEMOLYSIS 22 (0-50); Potassium 4.3 mmol/L (3.4-5.1); Sodium 134 mmol/L (137-145)
== END ==
PROVIDERS: PCP Family Medicine; Visit Provider Family Medicine
DX: N18.31 Chronic kidney disease, stage 3a (principal); E83.52 Hypercalcemia
CPT/HCPCS: 80048; 82310; 83970; 84155; 84165